=== PATIENT | female | born 1940 | race Caucasian/White ===

== ENCOUNTER 2016-07-27 10:20 | Emergency (ER) | payer MEDICARE ==
[2016-07-27] MEDS ORDERED: Lidocaine Viscous Sol 2% 15 ml UD Cup ONE (10:48)
[2016-07-27] MEDS ORDERED: Milk Of Magnesia 30 ML UDCUP ONE (10:48)
[2016-07-27] MEDS ORDERED: Ondansetron HCl/PF 4 MG/2 ML Vial ONE (10:48)
[2016-07-27 11:03] LABS: Bilirubin Negative (Negative); Blood, Urine Trace (Negative); Clarity Slightly Cloudy (Clear); Glucose, Urine (Dipstick) Negative (Negative); Leukocyte Trace (Negative); Nitrite Negative (Negative); Protein, Urine (Dipstick) Negative (Neg-Trace); Specific Gravity, Urine 1.015 (1.005-1.030); Urobilinogen 0.2 mg/dL (0.2-1.0)
[2016-07-27 11:13] LABS: #Basophils 0.1 thou/uL (0.0-0.2); #Eosinphils 0.1 thou/uL (0.0-0.7); #Lymphocytes 2.7 thou/uL (1.20-3.40); #Monocytes 0.6 thou/uL (0.11-0.59); #Neutrophils 5.6 thou/uL (1.40-6.50); %Basophils 1.3 % (0.0-1.0); %Eosinophils 0.8 % (0.0-10.0); %Lymphocytes 29.7 % (21.0-51.0); %Monocytes 6.3 % (0.0-10.0); %Neutrophils 61.9 % (42.0-75.0); Mean Corpuscular HGB CONC 35.5 g/dL (32.0-36.0); Mean Corpuscular Hemoglobin 34.2 pg (27.0-31.0); Mean Corpuscular Volume 96.5 fl (81.0-99.0); Mean Platelet Volume 5.9 fL (7.4-10.4); Platelet Count 196 thou/uL (130-400); RBC Distribution Width 11.2 % (11.5-14.5); Red Blood Cell (RBC) Count 4.96 mill/uL (4.20-5.40)
[2016-07-27 11:16] LABS: ALT (SGPT) 14 U/L (0-55); AST (SGOT) 20 U/L (5-34); Albumin 4.7 g/dL (3.4-4.8); Alkaline Phosphatase 91 U/L (40-150); Anion Gap 13 mmol/L (10-20); BUN (Urea Nitrogen) 17 mg/dL (9.8-20.1); Bilirubin, Total 0.8 mg/dL (0.2-1.2); Calc. Creatinine Clearance 0 mL/min (70-130); Calcium 9.5 mg/dL (7.8-10.44); Carbon Dioxide 28 mmol/L (23-31); Chloride 105 mmol/L (98-107); Estimated GFR-MDRD 60; Globulin 3.4 g/dL (2.4-3.5); Glucose 106 mg/dL (83-110); Lipase 46 U/L (8-78); Potassium 3.5 mmol/L (3.5-5.1); Protein, Total 8.1 g/dL (5.8-8.1); Sodium 142 mmol/L (136-145)
[2016-07-27 11:27] LABS: RBC/HPF 0-3 HPF (0-3); WBC/HPF 0-3 HPF (0-3)
[2016-07-27 11:28] LABS: Bacteria/HPF 1+ HPF (None Seen); Crystals/HPF 1+ AMORPH URATES HPF (Negative)
== END 2016-07-27 11:41 | disposition home or self-care (01) ==
LOC: BURERS 10:20
DX: R11.2 Nausea with vomiting, unspecified (principal); E78.5 Hyperlipidemia, unspecified; I10 Essential (primary) hypertension; F17.210 Nicotine dependence, cigarettes, uncomplicated; Z79.899 Other long term (current) drug therapy
CPT/HCPCS: 36415; 80053; 81003; 81015; 83690; 85025; 96361; 96374; J2405

== ENCOUNTER 2016-09-12 16:25 | Outpatient (CLI) | payer MEDICARE | END 2016-09-12 16:26 | disposition home or self-care (01) | LOC: BURLAB 16:25 | PROVIDERS: ATTEND Physician Assistant | DX: R19.7 Diarrhea, unspecified (principal) | CPT/HCPCS: 83630; 87015; 87045; 87046; 87177; 87449; 87899 ==

== ENCOUNTER 2016-10-03 19:27 | Emergency (ER) | payer MEDICARE ==
[2016-10-03] MEDS ORDERED: diphenhydrAMINE HCl 50 MG/ML 1 ML VIAL ONE (19:46)
[2016-10-03] MEDS ORDERED: Metoclopramide HCl 10 MG/2 ML VIAL ONE (19:46)
== END 2016-10-03 20:25 | disposition home or self-care (01) ==
LOC: BURERS 19:27
DX: G43.909 Migraine, unspecified, not intractable, without status migrainosus (principal); I10 Essential (primary) hypertension; E78.5 Hyperlipidemia, unspecified; F17.210 Nicotine dependence, cigarettes, uncomplicated; Z79.899 Other long term (current) drug therapy
CPT/HCPCS: 96374; 96375; J1200; J2765

== ENCOUNTER 2020-05-12 12:44 | Emergency (ER) | payer MEDICARE | END 2020-05-12 13:20 | disposition left against medical advice (07) | LOC: BURERS 12:44 | DX: Z53.21 Procedure and treatment not carried out due to patient leaving prior to being seen by health care provider (principal) ==

== ENCOUNTER 2022-07-03 16:50 | Emergency (ER) | payer OTHER, MEDICARE ==
[2022-07-03 17:14] LABS: #Basophils 0.1 thou/uL (0.0-0.2); #Monocytes 0.9 thou/uL (0.11-0.59); %Basophils 0.6 % (0.0-1.0); %Lymphocytes 6.1 % (21.0-51.0); %Monocytes 5.6 % (0.0-10.0); %Neutrophils 87.8 % (42.0-75.0); Hemoglobin 17.1 g/dL (12.0-16.0); Mean Corpuscular HGB CONC 33.6 g/dL (32.0-36.0); Mean Corpuscular Hemoglobin 32.5 pg (27.0-31.0); Mean Corpuscular Volume 96.8 fl (78.0-98.0); Mean Platelet Volume 7.1 fL (7.4-10.4); Platelet Count 225 10x3/uL (130-400); RBC Distribution Width 11.9 % (11.5-14.5); Red Blood Cell (RBC) Count 5.28 mill/uL (4.20-5.40)
[2022-07-03 17:22] LABS: Prothrombin Time 13.5 sec (12.0-14.7)
[2022-07-03 17:41] LABS: ALT (SGPT) 31 U/L (8-55); AST (SGOT) 44 U/L (5-34); Albumin 4.6 g/dL (3.4-4.8); Alkaline Phosphatase 79 U/L (40-110); Anion Gap 17 mmol/L (10-20); BUN (Urea Nitrogen) 65 mg/dL (9.8-20.1); Bilirubin, Total 0.7 mg/dL (0.2-1.2); CK (CPK) 392 U/L (29-168); Calc. Creatinine Clearance 0 mL/min (70-130); Carbon Dioxide 25 mmol/L (23-31); Chloride 108 mmol/L (98-107); Estimated GFR 35; Globulin 4.1 g/dL (2.4-3.5); Glucose 227 mg/dL (83-110); Potassium 4.4 mmol/L (3.5-5.1); Protein, Total 8.7 g/dL (5.8-8.1); Sodium 146 mmol/L (136-145)
[2022-07-03 17:49] LABS: CKMB 14.2 ng/mL (0-6.6)
[2022-07-03 18:22] LABS: Bilirubin Moderate (Negative); Blood, Urine Negative (Negative); Glucose, Urine (Dipstick) Negative (Negative); Ketone, Urine 15 mg/dL (Negative); Leukocyte Negative (Negative); Nitrite Negative (Negative); Protein, Urine (Dipstick) 100 mg/dL (Neg-Trace); Urobilinogen 0.2 mg/dL (Less than 2)
[2022-07-03 18:26] LABS: Specific Gravity, Urine 1.033 (1.002-1.036)
[2022-07-03 18:28] LABS: Bacteria/HPF Rare-Few HPF (None Seen); Calcium Oxalate Crystals 1+ HPF (None Seen); Clarity Hazy (Clear); RBC/HPF 0-3 HPF (0-3); Squamous Epithelial 0-3 HPF (0-3); WBC/HPF 0-3 HPF (0-3)
[2022-07-03 20:43] LABS: Troponin I 0.047 ng/mL (< 0.028)
[2022-07-03] MEDS ORDERED: Aspirin Chewable 81 MG TAB ONE (20:47)
[2022-07-03 23:26] LABS: Amphetamine Not Detected (NotDetected); Barbiturates Screen Not Detected (NotDetected); Benzodiazepine Screen Not Detected (NotDetected); Cocaine Metabolite Screen Not Detected (NotDetected); Methadone Not Detected (NotDetected); Methamphetamine Not Detected (NotDetected); Opiate Screen Not Detected (NotDetected); Oxycodone Screen Not Detected (NotDetected); Phencyclidine (PCP) Not Detected (NotDetected); THC/Cannabinoid Screen Not Detected (NotDetected); Tricyclic Screen Not Detected (NotDetected)
[2022-07-03 23:27] LABS: Medtox Control Line Valid? VALID (VALID)
== END 2022-07-03 23:14 | disposition short-term general hospital (02) ==
LOC: BURERS 16:50
DX: Z04.3 Encounter for examination and observation following other accident (principal); R94.31 Abnormal electrocardiogram [ECG] [EKG]; E86.0 Dehydration; R77.8 Other specified abnormalities of plasma proteins; W18.2XXA Fall in (into) shower or empty bathtub, initial encounter; Z79.899 Other long term (current) drug therapy
CPT/HCPCS: 36415; 70450; 71250; 72125; 74177; 80053; 80306; 81003; 81015; 82550; 82553; 83605; 83880; 84484; 85025; 85610; 93005; 96360; 96361

== ENCOUNTER 2022-07-10 13:05 | Inpatient (IN) | payer MEDICARE ==
[2022-07-10] MEDS ORDERED: Calcium Carbonate 500 MG ChewTAB PO PRN (19:00)
[2022-07-10] MEDS ORDERED: Acetaminophen 650 MG Suppository PR PRN (19:00)
[2022-07-10] MEDS ORDERED: Loperamide HCl 2 MG CAP PO PRN ×3 (19:00→19:36)
[2022-07-10] MEDS ORDERED: HYDROcodone/Acetaminophen 5/325 mg Tablet PO PRN ×2 (19:00)
[2022-07-10] MEDS ORDERED: Zolpidem Tartrate 5 MG TAB PO PRN (19:00)
[2022-07-10] MEDS ORDERED: Ondansetron PF 4 MG/2 ML Vial SLOW IVP PRN (19:00)
[2022-07-10] MEDS ORDERED: Hyoscyamine SL 0.125 MG TAB PO PRN (19:36)
[2022-07-10] MEDS ORDERED: Metoclopramide HCl 10 MG TAB PO PRN (19:55)
[2022-07-10] MEDS ORDERED: Famotidine 20 MG TAB PO SCH (21:00)
[2022-07-10] MEDS: Nicotine 21 MG PATCH TD SCH ×2 (21:47→21:49)
[2022-07-10] MEDS: Lisinopril 10 MG TAB PO SCH (21:49)
[2022-07-10] MEDS: Ipratropium/Albuterol 3 ML NEB NEB SCH (21:50)
[2022-07-10] MEDS: Mometasone/Formoterol 200/5 60 PUFF INH SCH (21:50)
[2022-07-10] MEDS: Metoprolol Tartrate 50 MG TAB PO SCH (21:50)
[2022-07-11] MEDS: Mometasone/Formoterol 200/5 60 PUFF INH SCH ×2 (09:06→20:36)
[2022-07-11] MEDS: Ipratropium/Albuterol 3 ML NEB NEB SCH ×3 (09:16→20:39)
[2022-07-11] MEDS: predniSONE 5 MG TAB PO SCH (09:17)
[2022-07-11] MEDS: Lisinopril 10 MG TAB PO SCH ×2 (09:17→20:45)
[2022-07-11] MEDS: Montelukast Sodium 10 mg Tablet PO SCH (09:18)
[2022-07-11] MEDS: Metoprolol Tartrate 50 MG TAB PO SCH ×2 (09:18→20:44)
[2022-07-11] MEDS: Saccharomyces boulardii 250 MG CAP PO SCH (09:18)
[2022-07-11] MEDS: Senokot S 8.6-50 MG TAB PO PRN (14:15)
[2022-07-11] MEDS: Nicotine 21 MG PATCH TD SCH (20:36)
[2022-07-12] MEDS: Bisacodyl 5 MG TAB PO PRN (07:03)
[2022-07-12] MEDS: Acetaminophen 325 MG TAB PO PRN (08:54)
[2022-07-12] MEDS: Ipratropium/Albuterol 3 ML NEB NEB SCH ×3 (08:55→21:17)
[2022-07-12] MEDS: Saccharomyces boulardii 250 MG CAP PO SCH (08:57)
[2022-07-12] MEDS: Metoprolol Tartrate 50 MG TAB PO SCH ×2 (08:57→21:17)
[2022-07-12] MEDS: Montelukast Sodium 10 mg Tablet PO SCH (08:57)
[2022-07-12] MEDS: Lisinopril 10 MG TAB PO SCH ×2 (08:57→21:17)
[2022-07-12] MEDS: predniSONE 5 MG TAB PO SCH (08:57)
[2022-07-12] MEDS: Mometasone/Formoterol 200/5 60 PUFF INH SCH ×2 (12:43→21:18)
[2022-07-12] MEDS: Milk Of Magnesia 30 ML UDCUP PO PRN (21:17)
[2022-07-12] MEDS: Nicotine 21 MG PATCH TD SCH ×2 (21:17→21:28)
[2022-07-12 21:20] LABS: Bilirubin Negative (Negative); Blood, Urine Negative (Negative); Clarity Clear (Clear); Glucose, Urine (Dipstick) Negative (Negative); Ketone, Urine Negative (Negative); Leukocyte Trace (Negative); Nitrite Negative (Negative); Protein, Urine (Dipstick) Negative (Neg-Trace); Urobilinogen 0.2 mg/dL (Less than 2); pH, Urine 5.5 (5.0-9.0)
[2022-07-12 21:23] LABS: Bacteria/HPF Rare-Few HPF (None Seen); RBC/HPF None Seen HPF (0-3); Specific Gravity, Urine 1.008 (1.002-1.036); Squamous Epithelial None Seen HPF (0-3); WBC/HPF 0-3 HPF (0-3)
[2022-07-13] MEDS: Saccharomyces boulardii 250 MG CAP PO SCH (09:24)
[2022-07-13] MEDS: Lisinopril 10 MG TAB PO SCH ×2 (09:24→20:57)
[2022-07-13] MEDS: predniSONE 5 MG TAB PO SCH (09:24)
[2022-07-13] MEDS: Metoprolol Tartrate 50 MG TAB PO SCH ×2 (09:24→20:58)
[2022-07-13] MEDS: Montelukast Sodium 10 mg Tablet PO SCH (09:25)
[2022-07-13] MEDS: Mometasone/Formoterol 200/5 60 PUFF INH SCH ×2 (09:25→22:18)
[2022-07-13] MEDS: Nitrofurantoin Monohyd/M-Cryst 100 MG CAP PO SCH ×2 (09:25→20:58)
[2022-07-13] MEDS: Ipratropium/Albuterol 3 ML NEB NEB SCH ×3 (09:30→20:55)
[2022-07-13] MEDS ORDERED: FLU VACC QS2022-23(6MO UP)/PF 60 MCG/0.5 ML SYRINGE IM ONE (18:30)
[2022-07-14] MEDS: Melatonin 3 MG TAB PO PRN ×2 (01:59→21:51)
[2022-07-14] MEDS: Ipratropium/Albuterol 3 ML NEB NEB SCH ×3 (09:23→21:49)
[2022-07-14] MEDS: Lisinopril 10 MG TAB PO SCH ×2 (09:25→21:51)
[2022-07-14] MEDS: Montelukast Sodium 10 mg Tablet PO SCH ×2 (09:25→09:26)
[2022-07-14] MEDS: Saccharomyces boulardii 250 MG CAP PO SCH (09:26)
[2022-07-14] MEDS: predniSONE 5 MG TAB PO SCH (09:26)
[2022-07-14] MEDS: Metoprolol Tartrate 50 MG TAB PO SCH ×2 (09:26→21:51)
[2022-07-14] MEDS: Nitrofurantoin Monohyd/M-Cryst 100 MG CAP PO SCH ×2 (09:26→21:51)
[2022-07-14] MEDS: Mometasone/Formoterol 200/5 60 PUFF INH SCH ×2 (09:28→21:47)
[2022-07-14] MEDS: Acetaminophen 325 MG TAB PO PRN (12:47)
[2022-07-15] MEDS: Ipratropium/Albuterol 3 ML NEB NEB SCH ×3 (09:19→20:42)
[2022-07-15] MEDS: Mometasone/Formoterol 200/5 60 PUFF INH SCH ×2 (09:23→20:41)
[2022-07-15] MEDS: predniSONE 5 MG TAB PO SCH (09:25)
[2022-07-15] MEDS: Lisinopril 10 MG TAB PO SCH ×2 (09:25→20:43)
[2022-07-15] MEDS: Nitrofurantoin Monohyd/M-Cryst 100 MG CAP PO SCH ×2 (09:26→20:43)
[2022-07-15] MEDS: Metoprolol Tartrate 50 MG TAB PO SCH ×2 (09:26→20:43)
[2022-07-15] MEDS: Montelukast Sodium 10 mg Tablet PO SCH (09:26)
[2022-07-15] MEDS: Saccharomyces boulardii 250 MG CAP PO SCH (09:26)
[2022-07-15] MEDS: Nystatin 500,000 UNITS/5 ML UDCUP SSW SCH ×3 (14:24→20:42)
[2022-07-15] MEDS: valACYclovir 500 MG TAB PO SCH (20:43)
[2022-07-16 05:40] VITALS: BMI 25.7
[2022-07-16] MEDS: Mometasone/Formoterol 200/5 60 PUFF INH SCH ×2 (09:22→21:27)
[2022-07-16] MEDS: Lisinopril 10 MG TAB PO SCH ×2 (09:24→21:30)
[2022-07-16] MEDS: valACYclovir 500 MG TAB PO SCH (09:24)
[2022-07-16] MEDS: Metoprolol Tartrate 50 MG TAB PO SCH ×2 (09:24→21:30)
[2022-07-16] MEDS: Nitrofurantoin Monohyd/M-Cryst 100 MG CAP PO SCH ×2 (09:25→21:30)
[2022-07-16] MEDS: Nystatin 500,000 UNITS/5 ML UDCUP SSW SCH ×4 (09:25→21:29)
[2022-07-16] MEDS: Montelukast Sodium 10 mg Tablet PO SCH (09:25)
[2022-07-16] MEDS: Saccharomyces boulardii 250 MG CAP PO SCH (09:25)
[2022-07-16] MEDS: Ipratropium/Albuterol 3 ML NEB NEB SCH ×3 (09:27→21:28)
[2022-07-16] MEDS: Acetaminophen 325 MG TAB PO PRN ×2 (09:46→17:39)
[2022-07-16] MEDS: Melatonin 3 MG TAB PO PRN (21:30)
[2022-07-17] MEDS: Mometasone/Formoterol 200/5 60 PUFF INH SCH ×2 (09:27→21:27)
[2022-07-17] MEDS: Nystatin 500,000 UNITS/5 ML UDCUP SSW SCH ×4 (09:28→21:25)
[2022-07-17] MEDS: Saccharomyces boulardii 250 MG CAP PO SCH (09:28)
[2022-07-17] MEDS: Metoprolol Tartrate 50 MG TAB PO SCH ×2 (09:29→21:25)
[2022-07-17] MEDS: Lisinopril 10 MG TAB PO SCH ×2 (09:29→21:25)
[2022-07-17] MEDS: Nitrofurantoin Monohyd/M-Cryst 100 MG CAP PO SCH ×2 (09:29→21:25)
[2022-07-17] MEDS: Acetaminophen 325 MG TAB PO PRN ×2 (09:32→15:39)
[2022-07-17] MEDS: Senokot S 8.6-50 MG TAB PO PRN (09:32)
[2022-07-17] MEDS: Ipratropium/Albuterol 3 ML NEB NEB SCH ×3 (09:32→21:26)
[2022-07-17] MEDS: Bisacodyl 5 MG TAB PO PRN (15:39)
[2022-07-18] MEDS: Ondansetron ODT 4 MG TAB SL PRN (09:06)
[2022-07-18] MEDS: Mometasone/Formoterol 200/5 60 PUFF INH SCH ×2 (09:07→20:14)
[2022-07-18] MEDS: Ipratropium/Albuterol 3 ML NEB NEB SCH ×3 (09:10→20:15)
[2022-07-18] MEDS: Lisinopril 10 MG TAB PO SCH ×2 (09:30→20:14)
[2022-07-18] MEDS: Saccharomyces boulardii 250 MG CAP PO SCH (09:33)
[2022-07-18] MEDS: Nystatin 500,000 UNITS/5 ML UDCUP SSW SCH ×4 (09:33→20:14)
[2022-07-18] MEDS: Montelukast Sodium 10 mg Tablet PO SCH (09:33)
[2022-07-18] MEDS: Metoprolol Tartrate 50 MG TAB PO SCH ×2 (09:33→20:14)
[2022-07-18] MEDS: Nitrofurantoin Monohyd/M-Cryst 100 MG CAP PO SCH ×2 (09:35→20:14)
[2022-07-18] MEDS: Milk Of Magnesia 30 ML UDCUP PO PRN ×2 (09:38→20:14)
[2022-07-18] MEDS: Bisacodyl 5 MG TAB PO PRN (17:19)
[2022-07-18] MEDS: Senokot S 8.6-50 MG TAB PO PRN (17:21)
[2022-07-19] MEDS: Lisinopril 10 MG TAB PO SCH ×2 (08:51→20:12)
[2022-07-19] MEDS: Saccharomyces boulardii 250 MG CAP PO SCH (08:55)
[2022-07-19] MEDS: Montelukast Sodium 10 mg Tablet PO SCH (08:55)
[2022-07-19] MEDS: Metoprolol Tartrate 50 MG TAB PO SCH ×2 (08:55→20:13)
[2022-07-19] MEDS: Nitrofurantoin Monohyd/M-Cryst 100 MG CAP PO SCH ×2 (08:55→20:12)
[2022-07-19] MEDS: Nystatin 500,000 UNITS/5 ML UDCUP SSW SCH ×4 (08:56→20:13)
[2022-07-19] MEDS: Ipratropium/Albuterol 3 ML NEB NEB SCH ×3 (08:56→20:11)
[2022-07-19] MEDS: Mometasone/Formoterol 200/5 60 PUFF INH SCH ×2 (09:03→20:14)
[2022-07-19] MEDS: Acetaminophen 325 MG TAB PO PRN (10:33)
[2022-07-19] MEDS: Senokot S 8.6-50 MG TAB PO PRN (15:22)
[2022-07-20] MEDS: Montelukast Sodium 10 mg Tablet PO SCH (09:58)
[2022-07-20] MEDS: Saccharomyces boulardii 250 MG CAP PO SCH (09:58)
[2022-07-20] MEDS: Lisinopril 10 MG TAB PO SCH ×2 (10:00→21:32)
[2022-07-20] MEDS: Metoprolol Tartrate 50 MG TAB PO SCH ×2 (10:02→21:31)
[2022-07-20] MEDS: Ipratropium/Albuterol 3 ML NEB NEB SCH ×3 (10:02→21:31)
[2022-07-20] MEDS: Mometasone/Formoterol 200/5 60 PUFF INH SCH ×2 (10:03→21:32)
[2022-07-20] MEDS: Acetaminophen 325 MG TAB PO PRN (10:03)
[2022-07-20] MEDS: Nystatin 500,000 UNITS/5 ML UDCUP SSW SCH ×2 (10:05→14:00)
[2022-07-20] MEDS: Milk Of Magnesia 30 ML UDCUP PO PRN (16:26)
[2022-07-21] MEDS: Mometasone/Formoterol 200/5 60 PUFF INH SCH ×2 (08:59→20:17)
[2022-07-21] MEDS: Montelukast Sodium 10 mg Tablet PO SCH (09:01)
[2022-07-21] MEDS: Ipratropium/Albuterol 3 ML NEB NEB SCH ×3 (09:01→20:14)
[2022-07-21] MEDS: Saccharomyces boulardii 250 MG CAP PO SCH (09:01)
[2022-07-21] MEDS: Metoprolol Tartrate 50 MG TAB PO SCH ×2 (09:02→20:13)
[2022-07-21] MEDS: Bisacodyl 5 MG TAB PO PRN (09:05)
[2022-07-21] MEDS: Lisinopril 10 MG TAB PO SCH ×2 (09:50→20:13)
[2022-07-21] MEDS: Senokot S 8.6-50 MG TAB PO PRN (15:46)
[2022-07-21] MEDS: Milk Of Magnesia 30 ML UDCUP PO PRN (18:47)
[2022-07-22] MEDS: Senokot S 8.6-50 MG TAB PO PRN (09:35)
[2022-07-22] MEDS: Polyethylene Glycol 3350 17 GM Packet PO SCH (09:35)
[2022-07-22] MEDS: Saccharomyces boulardii 250 MG CAP PO SCH (09:35)
[2022-07-22] MEDS: Montelukast Sodium 10 mg Tablet PO SCH (09:35)
[2022-07-22] MEDS: Acetaminophen 325 MG TAB PO PRN (09:36)
[2022-07-22] MEDS: Mometasone/Formoterol 200/5 60 PUFF INH SCH ×2 (09:37→20:26)
[2022-07-22] MEDS: Ipratropium/Albuterol 3 ML NEB NEB SCH ×3 (09:37→20:27)
[2022-07-22] MEDS: Metoprolol Tartrate 50 MG TAB PO SCH ×2 (09:38→20:28)
[2022-07-22] MEDS: Lisinopril 10 MG TAB PO SCH ×2 (09:41→20:29)
[2022-07-23] MEDS ORDERED: Lisinopril 10 MG TAB PO SCH (09:00)
[2022-07-23] MEDS: Montelukast Sodium 10 mg Tablet PO SCH (09:03)
[2022-07-23] MEDS: Saccharomyces boulardii 250 MG CAP PO SCH (09:03)
[2022-07-23] MEDS: Metoprolol Tartrate 50 MG TAB PO SCH ×2 (09:03→20:15)
[2022-07-23] MEDS: Ipratropium/Albuterol 3 ML NEB NEB SCH ×3 (09:04→20:15)
[2022-07-23] MEDS: Mometasone/Formoterol 200/5 60 PUFF INH SCH ×2 (09:06→20:17)
[2022-07-23] MEDS: Polyethylene Glycol 3350 17 GM Packet PO SCH (09:06)
[2022-07-23] MEDS: Lisinopril 20 MG TAB PO SCH (09:09)
[2022-07-23] MEDS: Acetaminophen 325 MG TAB PO PRN (15:01)
[2022-07-24] MEDS: Polyethylene Glycol 3350 17 GM Packet PO SCH (08:13)
[2022-07-24] MEDS: Mometasone/Formoterol 200/5 60 PUFF INH SCH ×2 (08:14→20:24)
[2022-07-24] MEDS: Metoprolol Tartrate 50 MG TAB PO SCH ×2 (08:18→20:23)
[2022-07-24] MEDS: Montelukast Sodium 10 mg Tablet PO SCH (08:18)
[2022-07-24] MEDS: Lisinopril 20 MG TAB PO SCH (08:19)
[2022-07-24] MEDS: Saccharomyces boulardii 250 MG CAP PO SCH (08:19)
[2022-07-24] MEDS: Ipratropium/Albuterol 3 ML NEB NEB SCH ×3 (08:20→20:22)
[2022-07-24] MEDS: Ondansetron ODT 4 MG TAB SL PRN ×2 (08:29→15:17)
[2022-07-24] MEDS: Acetaminophen 325 MG TAB PO PRN (11:53)
[2022-07-25] MEDS: Lisinopril 20 MG TAB PO SCH (08:45)
[2022-07-25] MEDS: Saccharomyces boulardii 250 MG CAP PO SCH (08:45)
[2022-07-25] MEDS: Montelukast Sodium 10 mg Tablet PO SCH (08:45)
[2022-07-25] MEDS: Polyethylene Glycol 3350 17 GM Packet PO SCH (08:45)
[2022-07-25] MEDS: Ipratropium/Albuterol 3 ML NEB NEB SCH ×3 (08:47→20:42)
[2022-07-25] MEDS: Metoprolol Tartrate 50 MG TAB PO SCH ×2 (08:49→20:44)
[2022-07-25] MEDS: Mometasone/Formoterol 200/5 60 PUFF INH SCH ×2 (08:50→21:16)
[2022-07-26] MEDS: Polyethylene Glycol 3350 17 GM Packet PO SCH (09:20)
[2022-07-26] MEDS: Saccharomyces boulardii 250 MG CAP PO SCH (09:21)
[2022-07-26] MEDS: Metoprolol Tartrate 50 MG TAB PO SCH ×2 (09:22→22:10)
[2022-07-26] MEDS: Lisinopril 20 MG TAB PO SCH (09:22)
[2022-07-26] MEDS: Sertraline 25 MG TAB PO SCH (09:22)
[2022-07-26] MEDS: Montelukast Sodium 10 mg Tablet PO SCH (09:28)
[2022-07-26] MEDS: Mometasone/Formoterol 200/5 60 PUFF INH SCH ×2 (09:29→22:17)
[2022-07-26] MEDS: Ipratropium/Albuterol 3 ML NEB NEB SCH ×3 (09:31→22:11)
[2022-07-27 05:29] LABS: Hemoglobin 12.7 g/dL (12.0-16.0); Platelet Count 146 10x3/uL (130-400)
[2022-07-27 05:54] VITALS: BP 120/70; TEMP 98.4
[2022-07-27] MEDS: Polyethylene Glycol 3350 17 GM Packet PO SCH (09:00)
[2022-07-27] MEDS: Ipratropium/Albuterol 3 ML NEB NEB SCH (09:00)
[2022-07-27] MEDS: Metoprolol Tartrate 50 MG TAB PO SCH (09:03)
[2022-07-27] MEDS: Montelukast Sodium 10 mg Tablet PO SCH (09:03)
[2022-07-27] MEDS: Lisinopril 20 MG TAB PO SCH (09:03)
[2022-07-27] MEDS: Sertraline 25 MG TAB PO SCH (09:03)
[2022-07-27] MEDS: Saccharomyces boulardii 250 MG CAP PO SCH (09:03)
[2022-07-27] MEDS: Mometasone/Formoterol 200/5 60 PUFF INH SCH (09:04)
== END 2022-07-27 15:45 | DRG 948 ==
LOC: BURMED 17:20
PROVIDERS: ADMIT Family Medicine; ATTEND Family Medicine
DX: R53.1 Weakness (principal); N39.0 Urinary tract infection, site not specified; J44.1 Chronic obstructive pulmonary disease with (acute) exacerbation; Z20.822 Contact with and (suspected) exposure to COVID-19; I10 Essential (primary) hypertension; G47.00 Insomnia, unspecified; K59.00 Constipation, unspecified; F32.A Depression, unspecified; R33.9 Retention of urine, unspecified; Z88.5 Allergy status to narcotic agent; Z88.2 Allergy status to sulfonamides; Z91.012 Allergy to eggs; Z99.81 Dependence on supplemental oxygen; Z91.011 Allergy to milk products; Z91.018 Allergy to other foods; Z79.899 Other long term (current) drug therapy
CPT/HCPCS: 36415; 74018; 81015; 82565; 85014; 85018; 85049; 87086; 87811; 94640; 94664; J1650; J7512; J7620; Q0162; U0003; U0005